=== PATIENT | female | born 1985 | race Hispanic/Latino ===

== ENCOUNTER 2019-01-31 01:44 | Inpatient (IN) | payer MEDICAID ==
[~2019-01-31] VITALS: Ht 157.5 cm; Wt 94.3 kg
[2019-01-31] MEDS ORDERED: LACTATED RINGERS 1000ML 1,000 ML IV PRN (01:52)
[2019-01-31] MEDS ORDERED: AMPICILLIN 2GM+NS 100ML 100 ML IV SCH (02:00)
[2019-01-31] MEDS ORDERED: AMPICILLIN 2GM+NS 100ML 100 ML IV ONE (02:24)
[2019-01-31] MEDS ORDERED: LACTATED RINGERS 1000ML 1,000 ML IV ONE (02:24)
[2019-01-31] MEDS ORDERED: MEPERIDINE-PF 50 MG/ML SYG ONE (02:27)
[2019-01-31] MEDS ORDERED: MEPERIDINE-PF 50 MG/ML SYG IVP PRN (02:30)
[2019-01-31] MEDS ORDERED: PROMETHAZINE HCL 25 MG/ML 1ML AMPULE IM PRN (02:30)
[2019-01-31 02:33] LABS: MEAN CORPUSCULAR HGB CONC 33.9 g/dL (32.0-36.0); MEAN CORPUSCULAR VOLUME 91.3 fL (79-99); PLATELET COUNT (AUTO) 321 K/uL (130-400); RED BLOOD CELL COUNT(AUTO) 4.49 MIL/uL (4.00-5.50); RED CELL DISTRIBUTION WIDTH 13.4 % (11.0-15.5); WHITE BLOOD COUNT (AUTO) 11.3 K/uL (4.8-10.8)
[2019-01-31 02:56] VITALS: BP 124/87
[2019-01-31] MEDS ORDERED: WITCH HAZEL 1 PAD TP PRN (04:00)
[2019-01-31] MEDS ORDERED: LANOLIN 30GM OINTMENT TP PRN (04:00)
[2019-01-31] MEDS ORDERED: IBUPROFEN 600 MG TABLET PO PRN (04:00)
[2019-01-31] MEDS ORDERED: BENZOCAINE/LANOLIN/ALOE VERA 60 ML AEROSOL TP PRN (04:00)
[2019-01-31] MEDS ORDERED: ACETAMINOPHEN-CODEINE 300/30MG TAB PO PRN (04:00)
[2019-01-31] MEDS ORDERED: ACETAMINOPHEN 325 MG TAB PO PRN (04:00)
[2019-01-31] MEDS: OXYTOCIN-LR 20 UNITS/1000 ML 1,000 ML IV SCH (05:44)
[2019-01-31] MEDS ORDERED: FLU VACC QS2019-20 36MOS UP/PF 60 MCG/0.5 ML ML IM ONE (06:30)
[2019-01-31 07:34] VITALS: BP 123/71
[2019-01-31] MEDS ORDERED: FLU VACC QS2019-20 36MOS UP/PF 60 MCG/0.5 ML ML IM SCH (09:00)
[2019-01-31] MEDS: DOCUSATE SODIUM 100 MG CAP PO SCH ×2 (09:17→20:14)
[2019-01-31 11:17] VITALS: BP 93/60
[2019-01-31 16:00] VITALS: BP 92/63
--- NOTE | 2019-01-31 17:31 | NUR ---
SPOKE WITH DR. LAGUNA VIA TELEPHONE. UPDATED ON PATIENT'S STATUS. NEW ORDERS RECEIVED.
[2019-01-31] MEDS ORDERED: PNV1TABL17 PO (19:10)
[2019-01-31 19:20] VITALS: BP 104/67
[2019-02-01 00:05] VITALS: BP 109/66
[2019-02-01] MEDS: AMPICILLIN 1GM+NS 50ML 50 ML IV SCH ×2 (02:00→03:52)
[2019-02-01] MEDS: OXYTOCIN-LR 20 UNITS/1000 ML 1,000 ML IV SCH (02:00)
[2019-02-01 03:30] VITALS: BP 98/57
[2019-02-01 07:45] VITALS: BP 99/66
[2019-02-01 08:12] LABS: HEPATITIS Bs ANTIGEN SCREEN P Negative (Negative)
[2019-02-01] MEDS ORDERED: DIPH,PERTUSS(ACELL),TET VAC/PF 0.5 ML VIAL IM SCH (09:00)
[2019-02-01] MEDS: DOCUSATE SODIUM 100 MG CAP PO SCH (09:24)
--- NOTE | 2019-02-01 12:10 | NUR ---
DISCHARGE PT LEFT UNIT VIA WHEELCHAIR, WITH BABY IN ARMS, ACCOMPANIED BY FAMILY. DENIED PAIN AND HAD NO COMPLAINTS. BABY STRAPPED IN CAR SEAT. TRANSPORTED BY PERSONAL VEHICLE.
== END 2019-02-01 12:10 | disposition home or self-care (01) | DRG 560 ==
LOC: EDH 01:44 → OBSVTOIN 01:45 → LDH 01:45 → WSH 05:50
PROVIDERS: ADMIT Obstetrics & Gynecology; ATTEND Obstetrics & Gynecology
PROC: 10E0XZZ Delivery of Products of Conception, External Approach (ICD-10-PCS; principal; 2019-01-31)
PROC: 3E0234Z Introduction of Serum, Toxoid and Vaccine into Muscle, Percutaneous Approach (ICD-10-PCS; 2019-01-31)
PROC: 3E02340 Introduction of Influenza Vaccine into Muscle, Percutaneous Approach (ICD-10-PCS; 2019-01-31)
DX: O99.824 Streptococcus B carrier state complicating childbirth (principal); Z37.0 Single live birth; O62.3 Precipitate labor; Z3A.39 39 weeks gestation of pregnancy; Z23 Encounter for immunization
CPT/HCPCS: 36415; 85027; 86592; 86850; 86900; 86901; 87340; 90715; G0378; J0290; J2175; J2590; J7120; Q2035